=== PATIENT | female | born 1985 | race Hispanic/Latino ===

== ENCOUNTER 2016-08-04 17:32 | Emergency (ER) | payer MEDICAID ==
[~2016-08-04 17:32] MED LIST: Docusate Sodium PO; Hydrocodone/Acetaminophen PO; Ibuprofen PO; PREN1TAB73 PO; ZOL50 PO
[2016-08-04 17:53] VITALS: PULSE 73; RESP 18; O2SAT 100
--- NOTE | 2016-08-04 18:10 | ED.REPORT ---
HPI-Preg Under 20 Weeks Date of Service Aug 04, 2016 ED Provider: Yovanny Mckeon MD A 7 week 30 year old female with no pertinent medical history presents to the ED complaining of abdominal pain and vaginal bleeding. The pt noticed light vaginal bleeding this morning directly followed by lower abdominal pain. This was accompanied by nausea. She denies diarrhea, constipation, or vomiting. The pt is no longer bleeding but is still experiencing mild abdominal pain. Nursing Notes Stated Complaint: STOMACH Chief Complaint: Female Abdominal Pain Nursing Notes Reviewed: Yes Allergies: Coded Allergies: No Known Allergies (Verified , 04/27/14) Scheduled Vit/Fe Fumarate/Fa-Expunged Drug, Do (-Expunged Drug, Do Not Renew!) 1 Tab Tablet 1 TAB PO DAILY Sertraline-Expunged Drug, Choose New Med! (Sertraline-Expunged Drug, Choose New Med!) 50 Mg Tab 50 MG PO DAILY Scheduled PRN ([Ibuprofen]) 800 MG TABLET 800 MG PO Q8 PRN PRN For Pain ([Hydrocodone/Acetaminophen]) 1 TAB TABLET 1-2 TAB PO Q4H PRN PRN For Pain ([Docusate Sodium]) 100 MG CAPSULE 100 MG PO BID PRN PRN For Constipation Doxylamine/Pyridoxine 10-10 mg (Diclegis DR 10-10 mg) 1 Each Tablet.dr 1 TABLET PO DAILY PRN PRN For Nausea Conchita Root (Conchita) 250 Mg Capsule 250 MG PO QID PRN PRN For Nausea General Time Seen by Provider: 18:03 Chief Complaint Abdominal pain Hx Obtained From: Patient Arrived By: Walk-in Onset Occurred: 9 - 12 hours ago Symptom Duration: Since onset Recent Healthcare: No recent doctor visit, No recent hospitalization Similar Sx Previous: No Past Medical History Past Medical History Past Surgical History none reported Smoking History Never Smoker Social History Alcohol Use: Denies alcohol use Drug Use: Denies drug use Ambulatory Status Independent Review of Systems Constitutional: Denies: Fever Respiratory: Denies: Non-productive cough Cardiovascular: Denies: Chest pain GI: Reports: Abdominal pain, Nausea, Denies: Constipation, Diarrhea, Vomiting Female: Reports: Vaginal bleeding - abnl Musculoskeletal: Denies: Back pain Skin: Denies Rash Complete sys rev & neg: except as marked. Physical Exam Initial Vital Signs Vital Signs (First) Date Time Temp Pulse Resp B/P Pulse Ox O2 Delivery O2 Flow Rate FiO2 08/04/16 17:53 36.6 73 18 100 Room Air 08/04/16 20:55 104/61 Initial VS: Reviewed General/Constitutional: Awake, Alert Abdomen: Atraumatic, Soft mild suprapubic tenderness Female Genitourinary: Exam deferred : Exam deferred ENT: Atraumatic, Airway patent, Mucous membranes moist Respiratory / Chest: Atraumatic, Breath sounds NL, Breath sounds = bilat, No respiratory distress Cardiovascular: Heart rate NL, Regular rhythm, Heart sounds NL Back: Atraumatic, Full range of motion Neurologic: Oriented X3, Speech NL, No motor deficits, No sensory deficits Head / Eyes: Atraumatic, Normocephalic, PERRL, EOMI Neck: Atraumatic, Supple, Full range of motion Upper Extremity / MS: Atraumatic, Full range of motion Lower Extremity / Pelvis / MS: Atraumatic, Full range of motion Skin: Atraumatic, Color NL, No rash, Warm, Dry Psychiatric: Affect NL, Mood NL Interpretation & Diagnostics Interpretation & Diagnostics: Pelvic/Transvaginal US: IMPRESSION: Single living intrauterine fetus with gestational age of 8 weeks zero days corresponding to an TRAY of 03/16/17. Recommend clinical correlation as the LMP is unknown. Uterine fibroid as above Dictated by: Tien Almanza M.D. on 08/04/2016 at 20:34 Approved by: Tien Almanza M.D. on 08/04/2016 at 20:37 Lab Results Interpretation Result Diagram: 08/04/16 1823 Test 08/04/16 18:05 08/04/16 18:07 08/04/16 18:23 Hold Urine Received (Received) Urine Color Yellow (YELLOW) Urine Appearance Clear (CLEAR,HAZY) Urine pH 5.5 (5.0-8.0) Urine Specific [place] 1.030 (1.003-1.035) Urine Protein Negativemg/dL (NEG,TRACE) Urine Glucose (UA) Negativemg/dL (NEGATIVE) Urine Ketones 15mg/dL (NEGATIVE) Urine Occult Blood Large (NEGATIVE) Urine Nitrite Negative (NEGATIVE) Urine Bilirubin Negative (NEGATIVE) Urine Urobilinogen Normalmg/dL (NORMAL) Urine Leukocyte Esterase Negative (NEGATIVE) Urine RBC 3-10/hpf (0-2) Urine WBC 0-5/hpf (0-5) Urine Epithelial Cells None/hpf (NONE-MOD) Urine Crystals None seen (NONE SEEN) Urine Bacteria Few/hpf (NONE-FEW) Urine Hyaline Casts None/lpf (NONE) Urine Granular Casts None seen (NONE SEEN) Urine Waxy Casts None seen (NONE SEEN) Urine Red Blood Cell Casts None seen (NONE SEEN) Urine White Blood Cell Casts None seen (NONE SEEN) Urine Mucus None seen (None Seen) Urine Trichomonas None seen (NONE SEEN) Urine Yeast None (NONE SEEN) Urinalysis Comment None Urine Culture Reflexed Not indicated White Blood Count 15.1th/mm3 (3.8-10.1) Red Blood Count 4.18mil/mm3 (3.90-5.20) Hemoglobin 13.7g/dL (12.0-15.6) Hematocrit 39.3% (35.0-46.0) Mean Corpuscular Volume 94.0fL (81-100) Mean Corpuscular Hemoglobin 32.8pg (27.0-35.0) Mean Corpuscular Hemoglobin Concent 34.9% (32.0-37.0) Red Cell Distribution Width 12.4% (12.3-15.4) Platelet Count 269bil/L (150-400) HCG Beta Subunit [id number]/mL Re-Eval/Medical Decision Med Decision/Clinical Course 30-year-old female at 8 weeks by last menstrual period presenting complaining of vaginal bleeding with mild cramping pelvic pain earlier today. Vital signs stable. Vaginal spotting. Ultrasound confirms intrauterine with no hemorrhage. Bleeding resolved. HCG [id number]. Patient was counseled regarding return precautions if any persistent bleeding, signs/sxs anemia, abd pain. She was given prescription for conchita and doxylamine/pyridoxine prn nausea. F/u PMD 2 days. Source of Hx: Old records Re-Evaluation/Progress : Time of Eval: 20:13 Patient Status: Condition improved Re-Evaluation/Progress Note: Pt rechecked, who is resting comfortably. She is informed of the results of her ultrasound and her diagnosis. The plan for discharge is discussed. The pt understands and agrees with the plan. All questions are addressed at this time. Counseled Regarding: Diagnosis, Lab results, Need for follow-up, When/why to return to ED Discharge & Departure Primary Impression: Vaginal bleeding in Trimester: first trimester Qualified Code: O46.91 - Antepartum hemorrhage, unspecified, first trimester Disposition: Home Discharge Condition All VS Reviewed: Yes Condition: Stable Patient Instructions: (ED) Additional Instructions: Thank you for entrusting us with your care today. Your ultrasound indicates a normal intrauterine at eight weeks. Take Tylenol as directed for pain. Follow up with your primary care physician for further evaluation. Return to the emergency department if you develop any new or worsening symptoms including worsening abdominal pain or vaginal bleeding. Dion por confiarnos fenton cuidado hoy. El ultrasonido indica un embarazo intrauterino normal en ocho semanas. [place] Tylenol steve se indica para el dolor. Seguimiento con fenton mdico de atencin primaria para la evaluacin adicional. Volver al servicio de urgencias si presenta cualquier sntoma nuevo o que empeora steve empeoramiento de dolor abdominal o sangrado vaginal. Referrals: [facility] (PCP) Scribe Attestation Portions of this note were transcribed by Bakari Sims. I, Dr. Mckeon personally performed the history, physical exam and medical decision-making; I reviewed and confirmed the accuracy of the information in the transcribed note. Signed by: Nidia Brooks, 08/04/2016 and 20:24. copies to: [facility] Yovanny Mckeon MD Aug 04, 2016 18:10 BAKARI SIMS Aug 04, 2016 18:21
[2016-08-04 18:35] LABS: APPEARANCE,URINE CLEAR (CLEAR,HAZY); COLOR,URINE YELLOW (YELLOW); PH,URINE 5.5 (5.0-8.0)
[2016-08-04 18:36] LABS: OCCULT BLOOD,URINE LARGE (NEGATIVE); UROBILINOGEN,URINE NORMAL (NORMAL)
[2016-08-04 19:00] LABS: Mean Corpuscular Hemoglobin 32.8 pg (27.0-35.0)
[2016-08-04] MEDS ORDERED: DOXY1TAB3 PO (20:18)
[2016-08-04] MEDS ORDERED: GING250C PO (20:18)
--- NOTE | 2016-08-04 20:38 | DRSVH ---
PROCEDURE: US OB<14 WKS+OB TRANSVAG INDICATIONS: vag bleeding, 7wks preg, R adnexal tender r/o ecto OUTSIDE/PRIOR DATING DATA: Last menstrual period (LMP): Unknown. LMP-based estimated date of delivery (TRAY): Unknown. First dating scan (date and location): This examination. Estimated date of delivery (TRAY) from first dating scan: 03/16/17. TECHNIQUE: Real-time scanning was performed of the fetus and maternal pelvic organs, with image documentation. Endovaginal scanning was also performed to better visualize the fetus and maternal ovaries. COMPARISON: None. 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 No perigestational bleeds. There is an anterior intramural u terine fibroid measuring 3.8 x 2.7 x 3.4 cm. Measurement variability in dating: +/- 4 weeks by LMP, +/- 7 days by mean sac diameter (use before 6 weeks gestation if crown-rump length not able to be measured), +/- 5 days by crown-rump length (6-12 weeks gestation). Maternal organs: Ovaries unremarkable, except for a possible corpus luteum on the left measuring 1.9 x 1.9 x 2.5 cm.. Limited images through the kidneys demonstrate no hydronephrosis. IMPRESSION: Single living intrauterine fetus with gestational age of 8 weeks zero days corresponding to an TRAY of 03/16/17. Recommend clinical correlation as the LMP is unknown. Uterine fibroid as above Dictated by: Tien Almanza M.D. on 08/04/2016 at 20:34 Approved by: Tien Almanza M.D. on 08/04/2016 at 20:37
[2016-08-04 20:55] VITALS: BP 104/61; PULSE 80; RESP 15; O2SAT 100
[2016-08-04 21:14] VITALS: BP 104/61; PULSE 80; RESP 15; O2SAT 100
== END 2016-08-04 21:15 | disposition home or self-care (01) ==
LOC: SED 17:32
DX: O20.9 Hemorrhage in early pregnancy, unspecified (principal); Z3A.01 Less than 8 weeks gestation of pregnancy

== ENCOUNTER 2017-01-17 15:58 | Emergency (ER) | payer MEDICAID ==
[~2017-01-17 15:58] MED LIST changes: +DOXY1TAB3 PO; +GING250C PO
[2017-01-17 16:18] VITALS: BP 105/68; PULSE 86; RESP 18; O2SAT 99
--- NOTE | 2017-01-17 17:45 | ED.REPORT ---
HPI-URI / Cough / Cold Date of Service Jan 17, 2017 ED Provider: Truong,Ed MD History of Present Illness: 31-year-old female here for URI symptoms. Runny nose, sore throat, ear pain, cough x 3 days. no fever, is 31 weeks . Denies nausea vomiting or diarrhea. Nursing Notes Stated Complaint: HEAD PAIN AND FLU SYMPTOMS Chief Complaint: FLU/Cold Symptoms Allergies: Coded Allergies: No Known Allergies (Verified , 04/27/14) Scheduled Vit/Fe Fumarate/Fa-Expunged Drug, Do (-Expunged Drug, Do Not Renew!) 1 Tab Tablet 1 TAB PO DAILY Sertraline-Expunged Drug, Choose New Med! (Sertraline-Expunged Drug, Choose New Med!) 50 Mg Tab 50 MG PO DAILY Scheduled PRN ([Ibuprofen]) 800 MG TABLET 800 MG PO Q8 PRN PRN For Pain ([Hydrocodone/Acetaminophen]) 1 TAB TABLET 1-2 TAB PO Q4H PRN PRN For Pain ([Docusate Sodium]) 100 MG CAPSULE 100 MG PO BID PRN PRN For Constipation Doxylamine/Pyridoxine 10-10 mg (Diclegis DR 10-10 mg) 1 Each Tablet.dr 1 TABLET PO DAILY PRN PRN For Nausea Micheline Root (Micheline) 250 Mg Capsule 250 MG PO QID PRN PRN For Nausea General Time Seen by MD: 17:38 Chief Complaint Cough, non-productive, Nasal congestion, Runny nose, Sore throat, Upper resp infection Hx Obtained From: Patient Arrived By: Walk-in Onset Occurred: 3 days ago Symptom Duration: Since onset Location: : Ear left: Ear right: Pharynx Severity: Current: Moderate Severity: Maximum: Moderate Context: Immunization Status General: All up to date Recent Healthcare: No recent doctor visit Similar Sx Previous: No Past Medical History Past Medical History Notes: , healthy Past Medical History Past Surgical History none reported Smoking History Never Smoker Social History Alcohol Use: Denies alcohol use Drug Use: Denies drug use Ambulatory Status Independent Review of Systems Constitutional: Denies: Fatigue, Fever Ears / Nose / Throat: Reports: Earache bilateral, Nasal congestion, Throat pain Respiratory: Denies: Dyspnea on exertion GI: Denies: Abdominal pain, Nausea, Vomiting Complete sys rev & neg: except as marked. Physical Exam Initial Vital Signs Vital Signs (First) Date Time Temp Pulse Resp B/P Pulse Ox O2 Delivery O2 Flow Rate FiO2 01/17/17 16:18 36.8 86 18 105/68 99 Room Air Initial VS: Reviewed, Vital signs normal General/Constitutional: Awake, Alert, Well appearing ENT: Atraumatic, Airway patent, Mucous membranes moist, Pharynx NL, No peritonsillar abscess, No pooling of secretions, Tympanic membs NL, Ext aud canal NL, Nose exam NL, No sinus tenderness, No facial swelling, Gums/dentition NL Respiratory / Chest: Breath sounds NL, Breath sounds = bilat, No respiratory distress, No rales, No rhonchi, No wheezing, No retractions, No stridor Head / Eyes: Normocephalic, PERRL Neck: Supple, No meningismus, Full range of motion, No adenopathy, No swelling , Non-tender Cardiovascular: Heart rate NL, Regular rhythm, Heart sounds NL, Peripheral circulation NL Abdomen: Soft, Non-tender, No guarding, No rebound Skin: Color NL, No rash, Warm, Dry, Turgor NL Re-Eval/Medical Decision Med Decision/Clinical Course Med Decision/Clinical Course: neg strep Test Equipment Mechanic provided for discharge and patient understands all instructions. Discharge & Departure Impression: Primary Impression: Upper respiratory infection URI type: unspecified viral URI Qualified Code: J06.9 - Acute upper respiratory infection, unspecified Disposition: Home Discharge Condition All VS Reviewed: Yes Condition: Stable Patient Instructions: Upper Respiratory Infection (ED) Additional Instructions: Use tylenol for pain or fever, benadryl for stuffy nose, dextromethorpan or guafenisen for cough. return if fevers or worsening condition. See your doctor this week if not improving. drink lots of water. Referrals: [facility] (PCP) EDSupervising Provider for APC: Jonas Zhong MD, Linnea K ARNP Jan 17, 2017 17:45
[2017-01-17 18:34] VITALS: BP 99/68; PULSE 80; RESP 16; O2SAT 97
== END 2017-01-17 18:35 | disposition home or self-care (01) ==
LOC: SED 15:58
DX: O99.89 Other specified diseases and conditions complicating pregnancy, childbirth and the puerperium (principal); J06.9 Acute upper respiratory infection, unspecified; Z3A.31 31 weeks gestation of pregnancy